=== PATIENT | female | born 1945 | race Hispanic/Latino ===

== ENCOUNTER 2021-07-10 00:43 | Emergency (ER) | payer OTHER, MEDICARE ==
[~2021-07-10] VITALS: Ht 154.9 cm; Wt 66.2 kg
[2021-07-10 00:45] VITALS: BP 191/77
[2021-07-10] MEDS ORDERED: DiphenhydrAMINE HCL 50 MG/ML VIAL ONE (03:53)
[2021-07-10] MEDS ORDERED: SOLU-MEDROL 125MG VIAL ONE (03:53)
[2021-07-10] MEDS ORDERED: FAMOTIDINE 20MG VIAL IV ONE ×2 (03:54→04:00)
[2021-07-10] MEDS ORDERED: DiphenhydrAMINE HCL 50 MG/ML VIAL IV ONE (04:00)
[2021-07-10] MEDS ORDERED: SOLU-MEDROL 125MG VIAL IVP ONE (04:00)
[2021-07-10 04:02] VITALS: BP 186/74
[2021-07-10] MEDS ORDERED: DIPH25 PO (05:47)
[2021-07-10] MEDS ORDERED: PRED20TA3 PO (05:47)
[2021-07-10] MEDS ORDERED: FAMO-136 PO (05:47)
[2021-07-10 06:06] VITALS: BP 182/78
== END 2021-07-10 06:10 | disposition home or self-care (01) ==
LOC: EDH 00:43
DX: L50.9 Urticaria, unspecified (principal); I10 Essential (primary) hypertension; E78.00 Pure hypercholesterolemia, unspecified; E11.9 Type 2 diabetes mellitus without complications; Z79.52 Long term (current) use of systemic steroids; Z88.0 Allergy status to penicillin
CPT/HCPCS: 96374; 96375; 99284; J1200; J2930; J3490

== ENCOUNTER 2024-04-26 15:28 | Observation (INO) | payer OTHER, MEDICARE ==
[~2024-04-26] VITALS: Ht 154.9 cm; Wt 59.4 kg
[~2024-04-26 15:28] MED LIST: DIPH-1242 PO; FAMO-136 PO; PRED20TA3 PO
[2024-04-26 16:00] LABS: BASOPHILS # (AUTO) 0.05 K/uL (0.00-0.20); BASOPHILS % (AUTO) 0.7 % (0.0-5.0); EOSINOPHILS # (AUTO) 0.09 K/uL (0.00-0.70); EOSINOPHILS % (AUTO) 1.3 % (0.0-8.0); HEMATOCRIT 31.2 % (36-48); IMMATURE GRANULOCYTE ABSOLUTE 0.03 K/uL (0-1); LYMPHOCYTES # (AUTO) 1.4 K/uL (1.0-4.8); LYMPHOCYTES % (AUTO) 21.2 % (21.0-51.0); MEAN CORPUSCULAR HEMOGLOBIN 29.2 pg (27.0-33.0); MEAN CORPUSCULAR HGB CONC 34.3 g/dL (32.0-36.0); MONOCYTES # (AUTO) 0.5 K/uL (0.1-1.0); MONOCYTES % (AUTO) 7.7 % (3.0-13.0); NEUTROPHILS # (AUTO) 4.6 K/uL (1.8-7.7); NEUTROPHILS % (AUTO) 68.7 % (40.0-77.0); PLATELET COUNT (AUTO) 221 K/uL (130-400); RED BLOOD CELL COUNT(AUTO) 3.67 MIL/uL (4.00-5.50); RED CELL DISTRIBUTION WIDTH 12.9 % (11.0-15.5); WHITE BLOOD COUNT (AUTO) 6.8 K/uL (4.8-10.8)
[2024-04-26 16:18] LABS: BILIRUBIN,TOTAL 0.3 mg/dL (0.2-1.0); CREATININE 1.7 mg/dL (0.5-1.0); POTASSIUM 4.6 mmol/L (3.5-5.1); TOTAL PROTEIN, SERUM 7.3 g/dL (6.0-8.3)
[2024-04-26] MEDS: KETOROLAC 30MG VIAL (30MG/ML) IVP ONE (19:00)
[2024-04-26] MEDS: LACTULOSE 20 GM/30 ML UDCUP PO ONE (19:00)
[2024-04-26] MEDS: 0.9%NACL 1000ML 1,000 ML IV ONE (19:00)
[2024-04-26 19:10] LABS: APPEARANCE,URINE CLEAR (CLEAR); BILIRUBIN,URINE NEGATIVE (NEGATIVE); COLOR,URINE COLORLESS (YELLOW); GLUCOSE, URINE (UA) NEGATIVE (NEGATIVE); KETONES,URINE NEGATIVE (NEGATIVE); LEUKOCYTE ESTERASE ,URINE NEGATIVE Leu/uL (NEGATIVE); NITRATE,URINE NEGATIVE (NEGATIVE); OCCULT BLOOD,URINE SMALL (NEGATIVE); PROTEIN,URINE NEGATIVE (NEGATIVE); UROBILINOGEN,URINE 0.2 mg/dL (0.2-1.0)
[2024-04-26 19:17] LABS: ADD UA MICROSCOPIC YES
[2024-04-26 19:18] LABS: RBC,URINE 0-1 /HPF (0-1); SQUAMOUS EPITHELIAL CELL,UR RARE /HPF (0-2)
[2024-04-26] MEDS ORDERED: TEMAZEPAM 15 MG CAPSULE PO PRN (20:00)
[2024-04-26] MEDS ORDERED: ONDANSETRON 4MG INJ IVP PRN (20:00)
[2024-04-26] MEDS ORDERED: ALBUTEROL 0.083% 2.5 MG/3 ML INH IH PRN (20:00)
[2024-04-26] MEDS ORDERED: ACETAMINOPHEN 650 MG SUPPOSITORY RC PRN (20:00)
[2024-04-26] MEDS: 0.9%NACL 1000ML 1,000 ML IV SCH (20:54)
[2024-04-26] MEDS: INSULIN HUMULIN R 100 UNIT/ML 3ML SQ SCH (21:00)
[2024-04-26] MEDS: DOCUSATE SODIUM 100 MG CAP PO SCH (21:25)
[2024-04-26] MEDS: IPRATROPIUM/ALBUTEROL SULFATE 3 ML SOLUTION IH SCH (23:05)
[2024-04-26 23:07] VITALS: PULSE 80; RESP 18
[2024-04-27] VITALS (11 sets, daily range): BP systolic 123–152; BP diastolic 53–73; PULSE 68–82; RESP 16–18; O2SAT 98–99
[2024-04-27] MEDS: BISACODYL 10 MG SUPP.RECT RC ONE (02:00)
[2024-04-27 04:22] LABS: BASOPHILS # (AUTO) 0.02 K/uL (0.00-0.20); BASOPHILS % (AUTO) 0.4 % (0.0-5.0); EOSINOPHILS # (AUTO) 0.08 K/uL (0.00-0.70); EOSINOPHILS % (AUTO) 1.7 % (0.0-8.0); HEMATOCRIT 27.8 % (36-48); IMMATURE GRANULOCYTE ABSOLUTE 0.01 K/uL (0-1); LYMPHOCYTES # (AUTO) 1.3 K/uL (1.0-4.8); LYMPHOCYTES % (AUTO) 27.2 % (21.0-51.0); MEAN CORPUSCULAR HEMOGLOBIN 29.6 pg (27.0-33.0); MEAN CORPUSCULAR HGB CONC 34.9 g/dL (32.0-36.0); MEAN CORPUSCULAR VOLUME 84.8 fL (79-99); MONOCYTES # (AUTO) 0.5 K/uL (0.1-1.0); MONOCYTES % (AUTO) 9.8 % (3.0-13.0); NEUTROPHILS # (AUTO) 2.9 K/uL (1.8-7.7); NEUTROPHILS % (AUTO) 60.7 % (40.0-77.0); PLATELET COUNT (AUTO) 177 K/uL (130-400); RED BLOOD CELL COUNT(AUTO) 3.28 MIL/uL (4.00-5.50); RED CELL DISTRIBUTION WIDTH 12.9 % (11.0-15.5); WHITE BLOOD COUNT (AUTO) 4.8 K/uL (4.8-10.8)
[2024-04-27 04:56] LABS: CREATININE 1.1 mg/dL (0.5-1.0); POTASSIUM 3.7 mmol/L (3.5-5.1); THYROID STIMULATING HORMONE 0.54 uIU/mL (0.36-3.74)
[2024-04-27] MEDS ORDERED: ROSU40TA70 PO (04:59)
[2024-04-27] MEDS ORDERED: AMLO-257 PO (04:59)
[2024-04-27] MEDS ORDERED: METF-444 PO (04:59)
[2024-04-27] MEDS ORDERED: LISI40TA9 PO (04:59)
[2024-04-27] MEDS ORDERED: OMEP40CA21 PO (04:59)
[2024-04-27] MEDS: LACTULOSE 20 GM/30 ML UDCUP PO PRN (05:01)
[2024-04-27] MEDS: ACETAMINOPHEN 325 MG TAB PO PRN (05:03)
[2024-04-27] MEDS: BISACODYL 5 MG TABLET.DR PO SCH (09:00)
[2024-04-27] MEDS ORDERED: NON-FORMULARY MEDICATION 1 EACH (Omeprazole 1 CAP) PO SCH (09:00)
[2024-04-27] MEDS ORDERED: KCL 20 MEQ ERTAB PO PRN (09:00)
[2024-04-27] MEDS ORDERED: POTASSIUM CHLORIDE 20MEQ/100ML 100 ML IV PRN (09:00)
[2024-04-27] MEDS: BISACODYL 5 MG TABLET.DR PO ONE (09:21)
[2024-04-27] MEDS: AMLODIPINE 5 MG TAB PO SCH (09:21)
[2024-04-27] MEDS: POLYETHYLENE GLYCOL 3350 17 GM POWD.PACK PO ONE (09:21)
[2024-04-27] MEDS: LISINOPRIL 40 MG TABLET PO SCH (09:21)
[2024-04-27] MEDS: PANTOPRAZOLE 40 MG TAB DR PO SCH (09:22)
[2024-04-27] MEDS: POTASSIUM CHLORIDE 10% ELIXIR 20 MEQ/15 ML UDCUP PO PRN (09:23)
[2024-04-27] MEDS ORDERED: IPRATROPIUM/ALBUTEROL SULFATE 3 ML SOLUTION IH PRN (09:30)
[2024-04-27] MEDS: 0.9% NACL 500ML IV.SOLN 500 ML IV SCH (10:41)
[2024-04-27] MEDS: 0.9%NACL 1000ML 1,000 ML IV SCH (11:55)
[2024-04-27] MEDS: ATORVASTATIN 40 MG TABLET PO SCH (19:39)
[2024-04-27] MEDS ORDERED: NON-FORMULARY MEDICATION 1 EACH (Rosuvastatin Calcium 1 TAB) PO SCH (21:00)
[2024-04-28 03:59] VITALS: BP 138/55; PULSE 66; RESP 18
[2024-04-28] MEDS: KETOROLAC 15MG/ML VIAL (15MG/ML) IV ONE (04:07)
[2024-04-28 04:15] LABS: HEMATOCRIT 29.5 % (36-48); MEAN CORPUSCULAR HEMOGLOBIN 29.2 pg (27.0-33.0); MEAN CORPUSCULAR HGB CONC 33.9 g/dL (32.0-36.0); MEAN CORPUSCULAR VOLUME 86.3 fL (79-99); RED BLOOD CELL COUNT(AUTO) 3.42 MIL/uL (4.00-5.50); RED CELL DISTRIBUTION WIDTH 13.6 % (11.0-15.5); WHITE BLOOD COUNT (AUTO) 6.3 K/uL (4.8-10.8)
[2024-04-28 04:57] LABS: CREATININE 1.1 mg/dL (0.5-1.0); MAGNESIUM 2.1 mg/dL (1.80-2.40); PHOSPHORUS 3.3 mg/dL (2.5-4.9); POTASSIUM 4.3 mmol/L (3.5-5.1); THYROID STIMULATING HORMONE 0.8 uIU/mL (0.36-3.74)
[2024-04-28 06:14] VITALS: PULSE 69; RESP 16; O2SAT 99
[2024-04-28 08:00] VITALS: BP 133/69; PULSE 76; RESP 18
[2024-04-28 08:15] VITALS: O2SAT 97
[2024-04-28] MEDS: POLYETHYLENE GLYCOL 3350 17 GM POWD.PACK PO SCH (08:25)
[2024-04-28] MEDS ORDERED: POLY17PO4 PO (10:20)
[2024-04-28] MEDS ORDERED: BISA-151 PO (10:20)
[2024-04-28] MEDS: LEVOFLOXACIN 750 MG TABLET PO ONE (11:36)
[2024-04-28] MEDS: METRONIDAZOLE 500 MG TABLET PO SCH (11:36)
[2024-04-28 11:51] VITALS: BP 136/65; PULSE 69; RESP 18
[2024-04-28] MEDS: SIMETHICONE 80 MG TAB.CHEW PO ONE (13:21)
[2024-04-30] MEDS ORDERED: LEVOFLOXACIN 750 MG TABLET PO SCH (09:00)
== END 2024-04-28 14:10 | disposition home or self-care (01) ==
LOC: EDH 15:28 → EDHIP 18:50 → 4AH 04-27 04:24
PROVIDERS: ADMIT Internal Medicine Critical Care Medicine; ATTEND Internal Medicine Critical Care Medicine
DX: K57.30 Diverticulosis of large intestine without perforation or abscess without bleeding (principal); K59.00 Constipation, unspecified; N17.9 Acute kidney failure, unspecified; E87.8 Other disorders of electrolyte and fluid balance, not elsewhere classified; D63.8 Anemia in other chronic diseases classified elsewhere; E11.65 Type 2 diabetes mellitus with hyperglycemia; E78.00 Pure hypercholesterolemia, unspecified; E83.51 Hypocalcemia; E87.1 Hypo-osmolality and hyponatremia; I10 Essential (primary) hypertension; E86.0 Dehydration; Z88.0 Allergy status to penicillin; Z79.899 Other long term (current) drug therapy
CPT/HCPCS: 96374; 96361 ×3; 99285; 84484; 80053; 83690; 85025 ×2; 82948 ×7; 81001; 36415 ×3; 74176; 93005; 94640; 96372; 84443 ×2; 83735 ×2; 80048 ×2; 74018 ×2; 96376; 84100; 85027; 84145; G0378 ×43; J7030 ×2; J1885 ×2; J1815; 94664

== ENCOUNTER → 2024-08-02 | Outpatient (CLI) | payer OTHER, MEDICARE ==
[~2024-08-02] MED LIST changes: +AMLO-257 PO; +BISA-151 PO; -DIPH-1242 PO; -FAMO-136 PO; +LISI40TA9 PO; +METF-444 PO; +OMEP40CA21 PO; +POLY17PO4 PO; -PRED20TA3 PO; +ROSU40TA88 PO
== END | disposition home or self-care (01) ==
LOC: RAH 10:20
PROVIDERS: ATTEND Internal Medicine Gastroenterology
DX: R10.10 Upper abdominal pain, unspecified (principal); R11.2 Nausea with vomiting, unspecified
CPT/HCPCS: 78264; A9541